=== PATIENT | male | born 1970 | race Caucasian/White ===

== ENCOUNTER → 2020-06-27 | Outpatient (CLI) | payer BC ==
[~2020-06-27] MED LIST: ATIVAN1 MG PO; DOXAZOSIN MESYLA2 MG PO; GEMFIBROZIL600 MG PO; GLUCOPHAGE1000 MG PO; GLYBURIDE5 MG PO; HYDROCHLOROTHIA25 M1 PO; IBU800 MG PO; LEXAPRO10 MG PO; LIPITOR80 MG PO; LOTREL 10-40 M1 EACH PO; METOPROLOL SUCC50 M1 PO; SYNTHROID25 MCG PO; ZYRTEC-D TABLE1 EACH PO
== END | disposition home or self-care (01) ==
LOC: COVID19 12:29
PROVIDERS: ATTEND Family Medicine
DX: U07.1 COVID-19 (principal)